=== PATIENT | male | born 1990 | race Caucasian/White ===

== ENCOUNTER 2020-01-03 17:04 | Emergency (ER) | payer OTHER, SELFPAY ==
--- NOTE | ~2020-01-03 | XR_ITS ---
XR ankle LT min 3V 01/03/2020 17:25 INDICATION: Right ankle pain after inversion injury. PROCEDURE: 4 views right ankle COMPARISON: 12/28/2014 FINDINGS: Fracture, dislocation or subluxation is not identified. Ankle mortise intact. There is mode rate soft tissue swelling. No foreign bodies are identified. IMPRESSION: 1: NO ACUTE BONE OR JOINT ABNORMALITY IDENTIFIED. Reviewed, dictated and finalized at location A.
[2020-01-03 17:11] VITALS: BP 158/90; PULSE 107; RESP 18; TEMP 37.6; O2SAT 100
--- NOTE | 2020-01-03 17:14 | ED.LOWEXIN ---
HPI - Extremity Injury (Lower) General Chief Complaint: Extremity Injury, Lower Stated Complaint: right ankle injury Time Seen by Provider: 01/03/20 17:15 Source: patient and RN notes reviewed History of Present Illness HPI Narrative: Patient is a 29-year-old male who presents the urgent care with complaints of swollen and painful right ankle. Patient states that yesterday at 5 PM he was out playing with the dog in the yard and fell in a hole. Patient has been elevating using ice and Tylenol for the pain. No other acute complaints or injuries. No acute distress noted. Patient read the plan of care. Related Data Allergies Allergy/AdvReac Type Severity Reaction Status Date / Time No Known Allergies Allergy Verified 01/03/20 17:20 Review of Systems Review of Systems: Narrative: CONSTITUTIONAL: Denies fever, chills, or sweats. EYES: Denies visual changes, redness, or discharge. ENT: Denies rhinorrhea, congestion, sore throat, or otalgia. CARDIOVASCULAR: Denies chest pain, palpitations, or edema. RESPIRATORY: Denies cough or dyspnea. GASTROINTESTINAL: Denies abdominal pain, nausea, vomiting, or diarrhea. GENITOURINARY: Denies dysuria or hematuria. SKIN: Denies rash or itching. MUSCULOSKELETAL: Reports of a right ankle swelling, tenderness, pain NEUROLOGIC: Denies headache, numbness, or weakness. All other systems reviewed are negative, except as documented in HPI. PMFSH Social History Social History Smoking status: Former smoker Smoking end date: 06/09/07 Comments At the time of my signature, I reviewed and agree with the nursing past medical, surgical, social, and family history. There is no relevant family history pertinent to the patient complaint. Exam Narrative: Exam Narrative: GENERAL: This is a well-nourished, well-developed patient, in no apparent distress. HEAD: normocephalic, atraumatic. EYES: PERRL. Sclera clear/white. Vision is grossly intact. EARS: External ears normal NOSE: External nose normal with no obvious nasal discharge, nares without redness, no rhinorrhea. THROAT: Mucous membranes moist NECK: Neck supple SKIN: warm, intact with no suspicious lesions or rash, good texture and turgor. NEURO: awake, alert, and oriented to person, place and time. There were no obvious focal neurologic abnormalities. EXTREMITIES: Moderate lateral right malleolus tenderness, edema extending into the dorsal lateral aspect of the right foot. Capillary refill less than 2 seconds so right lower extremity with positive strong right pedal pulse. Range of motion not tested due to pain. No obvious deformity. Course Vital Signs Vital signs: Vital Signs Temperature 99.6 F 01/03/20 17:11 Pulse Rate 107 H 01/03/20 17:11 Respiratory Rate 18 01/03/20 17:11 Blood Pressure 158/90 H 01/03/20 17:11 Pulse Oximetry 100 01/03/20 17:11 Temperature 99.6 F 01/03/20 17:11 Pulse Rate 107 H 01/03/20 17:11 Respiratory Rate 18 01/03/20 17:11 Blood Pressure 158/90 H 01/03/20 17:11 Pulse Oximetry 100 01/03/20 17:11 Reviewed?patient is informed that they may have pre-hypertension or hypertension based on a blood pressure reading in the department. I recommend the patient call the primary care provider listed on their discharge instructions or a physician of their choice this week to arrange follow-up for further evaluation of possible pre-hypertension or hypertension. MDM - Extremity Injury (Lower) MDM Narrative Medical decision making narrative: Reviewed x-ray results the patient. He is aware the x-ray was negative for fracture. Advised the patient to use an Medhat wrap for support and wear supportive shoe. Do not engage in any strenuous activity or anything requiring standing on your feet for any length of time. It will take approximately 3 to 5 days as long as you are staying off the foot, to improve. Elevate and use ice as much as possible. Use Tylenol/ibuprofen as needed for pain. Follow-up with your PCP/
== END 2020-01-03 17:54 | disposition home or self-care (01) ==
PROVIDERS: Emergency Provider Nurse Practitioner Family
DX: S93.401A Sprain of unspecified ligament of right ankle, initial encounter (principal); S96.911A Strain of unspecified muscle and tendon at ankle and foot level, right foot, initial encounter; W17.2XXA Fall into hole, initial encounter
CPT/HCPCS: 73610; 99213; G0463